=== PATIENT | female | born 1990 | race Caucasian/White ===

== ENCOUNTER → 2020-01-02 10:46 | Outpatient (REF) | payer OTHER, SELFPAY | LOC: ANHLAB 10:46 | PROVIDERS: PCP Family Medicine; Visit Provider Nurse Practitioner Family | DX: L72.9 Follicular cyst of the skin and subcutaneous tissue, unspecified (principal) | CPT/HCPCS: 88304 ==

== ENCOUNTER 2020-06-10 14:25 | Outpatient (CLI) | payer OTHER, SELFPAY ==
--- NOTE | ~2020-06-10 | MMUS_ITS ---
EXAMINATION: MM diagnostic otilia BI w stephany, US breast BI complete HISTORY: Nipple discharge. TECHNIQUE: Additional 3-D tomosynthesis images of the breasts were performed and synthetic 2-D images were generated. CAD analysis was submitted and interpreted. High resolution bilateral breast ultraso und was performed. COMPARISON: None BREAST PARENCHYMAL COMPOSITION: The breasts are extremely dense, which lowers the sensitivity of mamm ography. FINDINGS: MAMMOGRAPHIC FINDINGS: There are no suspicious masses, calcifications or architectural distortion to suggest malignancy. ULTRASOUND: Right breast ultrasound: At 6:00, 2 cm from the nipple, there is an oval circumscribed hypoechoic mass measuring 5 mm maximum dimension. There are spell orientation, circumscribed margins, no internal vascularity or posterior f eatures. Left breast ultrasound: At 8:00, 3 cm from the nipple, there is oval hypoechoic mass with circumscrib ed margins, parallel orientation, no internal vascularity or posterior features measuring 10 x 4 x 6 mm. There is a echogenic hilum. IMPRESSION: 1. Probable benign bilateral breast masses. 2. Recommend 6 month follow-up bilateral breast ultrasound BI-RADS category 3, probably benign findings. Reviewed, dictated and finalized at location A. IMPRESSION: 1. Probable benign bilateral breast masses. 2. Recommend 6 month follow-up bilateral breast ultrasound BI-RADS category 3, probably benign findings.
== END 2020-06-10 14:26 ==
PROVIDERS: Visit Provider Nurse Practitioner Adult Health
DX: N64.52 Nipple discharge (principal); R92.8 Other abnormal and inconclusive findings on diagnostic imaging of breast
CPT/HCPCS: 76641; 77062; 77066; G0279

== ENCOUNTER → 2020-12-24 06:51 | Outpatient (CLI) | payer OTHER, SELFPAY ==
[2020-12-24 20:12] LABS: SARS-CoV-2 RNA PCR Negative
== END ==
PROVIDERS: Visit Provider Nurse Practitioner Adult Health
DX: R68.89 Other general symptoms and signs (principal); Z20.822 Contact with and (suspected) exposure to COVID-19
CPT/HCPCS: C9803; U0003; U0005

== ENCOUNTER → 2022-05-03 08:22 | Outpatient (CLI) | payer OTHER, SELFPAY ==
--- NOTE | ~2022-05-03 | CT_ITS ---
EXAMINATION: CT abdomen pelvis wo con DATE: 05/03/2022 08:47 INDICATION: Hematuria TECHNIQUE: Computed tomography (CT) of the abdomen and pelvis was performed without intravenous contr ast. Automated exposure control and iterative reconstruction technique were employed. Exam dose: 236 .22 mGy-cm total exam DLP. COMPARISON: None. FINDINGS: The lung bases are clear. Normal heart size. No pericardial or pleural effusion. Status post cholecystectomy. The liver, bile ducts, pancreas and pancreatic duct are unremarkable. Splenic size is within normal r yamilex. Normal morphology of the adrenal glands. No renal mass lesion or urinary tract calculus or hydroureteronephrosis. The uterus, adnexal areas an d urinary bladder are unremarkable. Normal caliber of the abdominal aorta. No intraperitoneal or retroperitoneal or pelvic mass lesion or adenopathy or ascites is noted. Normal appendix. No bowel obstruction or intraperitoneal free air. Very small fat-containing umbilical hernia. Included skeletal structures are unremarkable. IMPRESSION: No urinary tract calculus or hydroureteronephrosis. No apparent renal or urinary bladder space-occupying mass lesion is evident on this limited noncontrast examination Normal appendix Status post cholecystectomy Reviewed, dictated and finalized at Location [facility]. Reviewed, dictated and finalized at location B. IMPRESSION: No urinary tract calculus or hydroureteronephrosis. No apparent re nal or urinary bladder space-occupying mass lesion is evident on this limited n oncontrast examination Normal appendix Status post cholecystectomy
== END ==
PROVIDERS: PCP Nurse Practitioner Adult Health; Visit Provider Nurse Practitioner Adult Health
DX: R31.9 Hematuria, unspecified (principal)
CPT/HCPCS: 74176

== ENCOUNTER 2024-10-05 08:07 | Emergency (ER) | payer BC, SELFPAY ==
[2024-10-05 08:20] VITALS: BP 112/79; PULSE 91; RESP 20; TEMP 36.4; O2SAT 100
--- NOTE | 2024-10-05 08:20 | ED_ITS ---
HPI - URI/Sore Throat General Chief Complaint: Upper Respiratory Infection Stated Complaint: aches/fever/chills/chest tight/cough Time Seen by Provider: 10/05/24 08:22 Source: patient, RN notes reviewed and old records reviewed Mode of arrival: ambulatory Limitations: no limitations History of Present Illness HPI Narrative: 34 year old female who presents to [facility] care with complaints of cough, fevers up to 101.5F which was this morning, body aches, chills and some chest tightness with cough since Monday. Patient reports that daughter is just getting over viral pneumonia. Patient reports that she has been taking Tylenol and Ibuprofen for her fevers and also her generalized aching. Patient reports that cough really started to get bad yesterday. MD elicited complaint: cough and sore throat Pertinent past history: pneumonia Onset (ago): day(s) (4) Consistency: progressively worsening Pain scale (0-10): 3 Able to tolerate fluids by mouth: Yes Treatments prior to arrival: acetaminophen and ibuprofen Related Data Home Medications Medication Instructions Recorded Confirmed Zyrtec .Route 09/25/24 09/25/24 fluoxetine 10 mg capsule 10 mg PO DAILY 09/25/24 09/25/24 methylphenidate HCl 100 mg 100 mg PO QHS 09/25/24 09/25/24 capsule,delayed release,ext release sprinkle (Jornay PM) Allergies Allergy/AdvReac Type Severity Reaction Status Date / Time codeine Allergy Mild Nausea and Verified 09/25/24 11:16 Vomiting oxycodone Allergy Mild Nausea and Verified 09/25/24 11:16 Vomiting Sulfa (Sulfonamide Allergy Mild Nausea and Verified 09/25/24 11:16 Antibiotics) Vomiting Review of Systems Review of Systems: CONSTITUTIONAL: Reports malaise, chills, sweats, or fever. EYES: Denies visual changes, redness, or discharge. ENT: Reports rhinorrhea, congestion,no sinus pain,no otalgia and no sore throat. CARDIOVASCULAR: Denies chest pain, palpitations, or edema. RESPIRATORY: Reports cough.? Denies any acute dyspnea GASTROINTESTINAL: Denies abdominal pain, nausea, vomiting, diarrhea SKIN: Denies rash or itching. MUSCULOSKELETAL: Reports myalgia. NEUROLOGIC: Denies headache. All systems reviewed & are unremarkable except as noted in HPI and below PMFSH Past Medical History Medical History ADHD Anxiety Depression Interstitial cystitis Pneumonia 2012 Surgical History Surgical History History of 2 sections 2011, 2014 History of cholecystectomy History of tonsillectomy Family History Family History Mother SVT (supraventricular tachycardia) Father Heart disease Sibling Depression Anxiety Hypertension Grandparent Cancer Grandparent Diabetes mellitus Heart disease Grandparent Hypertension Diabetes mellitus Heart disease Cancer Social History Social History Smoking status: Never smoker Alcohol intake: current Alcohol use details: 1-4 a week Substance use: never Substance use type: does not use Additional occupation/education comments: Self Employed Gender identity (if verbalized by the patient): Female Agree to blood products: Yes Comments At time of signature, agree with nursing past medical, surgical, social and family history. There is no relevant family history pertinent to the presenting complaint Exam Narrative: GENERAL: Ill-appearing, well-nourished, and in no acute distress. HEAD: Normocephalic EYES: PERRLA, conjunctivae clear ENT: Nares clear, turbinates edematous and erythematous, clear discharge. Mucous membranes moist. TM pearly gutiérrez with dull light reflex bilaterally; no tragal tenderness. Oropharynx erythematous without lesions. Tonsils not present and throat without exudate, no drooling, no hoarseness, no trismus, uvula midline. NECK: Supple. No lymphadenopathy CHEST: Clear to auscultation, breath sounds equal. No wheezing, rhonchi, rales, or stridor. No respiratory distress, speaks in full sentences.cough at times productive, SAO2 100% on room air HEART: Regular rate and rhythm. No murmur heard. SKIN: Warm, dry, no rash. NEURO: Alert and oriented x3. PSYCH: Normal mood and affect Course Course Emergency Course: Patient is aware of diagnosis, understands and agrees to treatment plan.? Anticipatory guidance given.? Patient agrees to follow-up as directed and is aware of reasons to seek care at the emergency department. Portions of this record may have been created with voice recognition software Level of Care: Express Care Visit Vital Signs Vital signs: Reviewed MDM - URI/Sore Throat MDM Narrative Medical decision making narrative: Differential diagnosis considered: Ro virus, strep pharyngitis, allergic rhinitis, upper respiratory tract infection, sinusitis, rhinosinusitis, nasopharyngitis. viral pharyngitis, otitis media, otitis externa, pneumonia, bronchitis, viral cough syndrome, viral syndrome, and influenza.? Exam findings show no acute concerns or changes; patient is non-toxic appearing and is in no distress.? Patient is appropriate for outpatient treatment and follow-up. Differential Diagnosis Differential diagnosis: Likely upper respiratory infection, viral infection and other (pneumonia, acute cough) Medical Records Attestation: I reviewed the patient's medical records. Lab Data Attestation: I reviewed the patient's lab results. Lab results narrative: influenza A negative, Influenza B negative, Covid antigen negative Critical Care Time Critical Care Time Critical Care Time: No Discharge Plan Discharge Clinical Impression: Upper respiratory infection with cough and congestion Patient Disposition: Home, Self-Care Condition: Stable Instructions: Antibiotic Form, Upper Respiratory Infection (ED), Acute Cough (ED) Additional Instructions: Increase fluids especially juices and water Dbdo-lck-skawifb cough and cold medicine of your choice for your symptoms Zyrtec Claritin or Siri daily Tylenol or ibuprofen for any fever pain Steroids as directed--take with food heat to the face 20-30 minutes 4-6 times a day for pain Salt water gargles, throat lozenges or throat sprays as desired Antibiotic as directed--finished the medication If your symptoms persist, change or worsen significantly before you can contact your personal physician then please, without delay, go to the emergency department for further evaluation. Follow-up with PCP in 7-10 days or sooner if needed Prescriptions: New azithromycin 250 mg tablet See Rx Instructions .ROUTE .COMPLEX Qty: 6 0RF Rx Instructions: For 250 mg dose pack: take 500 mg today (day 1), then 250 mg for 4 days (days 2-5) methylprednisolone [Medrol (José)] 4 mg tablets,dose pack See Rx Instructions .ROUTE .COMPLEX Qty: 21 0RF Rx Instructions: orally per package directions No Action Zyrtec .Route Rx Instructions: 10mg as directed. Jornay PM 100 mg capsule,del rel,ext rel sprink 100 mg PO QHS fluoxetine 10 mg capsule 10 mg PO DAILY Follow-up/Referrals: Tracy Gibson APRN [Primary Care Provider] - Time of Disposition: 08:51 Quality Jeffy Coma Scale Eyes: Open Verbal: Oriented and Alert Motor: Follows Commands Jeffy Coma Total Score: 15
[2024-10-05 08:49] LABS: EDCOVIDSCREEN Negative (Negative); EDINFLUASCREEN Negative (Negative); EDINFLUBSCREEN Negative (Negative)
== END 2024-10-05 08:55 | disposition home or self-care (01) ==
PROVIDERS: Emergency Provider Registered Nurse; PCP Nurse Practitioner Adult Health
DX: J06.9 Acute upper respiratory infection, unspecified (principal); R05.9 Cough, unspecified; Z20.822 Contact with and (suspected) exposure to COVID-19; F41.9 Anxiety disorder, unspecified; F32.A Depression, unspecified
CPT/HCPCS: 87426; 87804; 99213; G0463

== ENCOUNTER 2024-12-30 08:48 | Outpatient (CLI) | payer OTHER, SELFPAY ==
--- OUTSIDE RECORDS SUMMARY | 2024-12-30 09:24 | XMS_ITS | Referral Summary ---
Author Organization [facility] Address [address] [place] [id number] Care Team Providers Care Production Bow Maker Name Role Phone Dameon Pitt MD Primary Care Provider [phone] Allergies Active Allergy Reactions Criticality Noted Date Comments Codeine Vomiting High 04/22/2022 Nifedipine Hives Medium 04/22/2022 Sulfa (Sulfonamide Antibiotics) Hives High 04/06 Medications desvenlafaxine ER (PRISTIQ) 25 mg tablet extended release 24 hr 24 hr tablet desvenlafaxine succinate ER 25 mg tablet,extended release 24 hr TAKE 1 TABLET BY MOUTH EVERY DAY FOR 30 DAYS Active ALPRAZolam (XANAX) 0.25 mg tablet PRN Active diazePAM (VALIUM) 10 mg tablet diazepam 10 mg tablet INSERT TABLET VAGINALLY EVERY DAY AT BEDTIME FOR 10 DAYS Active fluoride, sodium, 1.1 % gel PreviDent 5000 Booster Plus 1.1 % dental paste BRUSH TEETH DIRECTED BY DOCTOR. Active kingsley-anthony de leónqxhd-auibp-a yo 118-10-40.8-36 mg capsule Uro-MP 118 mg-10 mg-40.8 mg-36 mg capsule TAKE 1 CAPSULE BY MOUTH FOUR TIMES A DAY NEEDED Active FLUoxetine 10 mg capsule Take 1 capsule by mouth once daily 90 capsule 3 Active Active Problems Problem Noted Date Diagnosed Date Gastroesophageal reflux disease 07/11/2023 Diastasis recti 09/21/2017 Thoracic back pain 09/21/2017 Mixed anxiety and depressive disorder 04/27/2017 Immunizations Immunization Administration Dates Next Due Hep B Vaccine 04/06/2022 Influenza, Quadrivalent, Spl it, Intramuscular 01/02/2017,09/08/2015 Influenza, Quadrivalent, Spl it, Preservative Free, Intramuscular 09/07/2021,08/07/2019,09/04/2018,09/21 Social History Tobacco Use Types Packs/Day Years Used Date Smoking Tobacco: Former PHQ-2 Answer Date Recorded PHQ-2 Total Score (If total score is 3 or more points, staff should administer the PHQ-9) 0 08/17/2022 Personal Safety Answer Date Recorded Getting School Help Needed Not on file 11/09 Comments Unknown Sex and Gender Information Value Date Recorded Sex Assigned at Not on file 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 Gender Identity Not on file Sexual Orientation Not on file Last Filed Vital Signs Vital Sign Reading Time Taken Comments Blood Pressure 112/74 07/11/2023 8:22 AM CDT Pulse 66 07/11/2023 8:22 AM CDT Temperature 36.4 C (97.6 F) 07/11/2023 8:22 AM CDT Respiratory Rate 16 07/11/2023 8:22 AM CDT Oxygen Saturation 96% 07/11/2023 8:22 AM CDT Inhaled Oxygen Concentration - - Weight 63.5 kg (140 lb) 07/11/2023 8:22 AM CDT Height 165.1 cm (5' 5 ) 07/11/2023 8:22 AM CDT Body Mass Index 23.3 07/11/2023 8:22 AM CDT Plan of Treatment Not on file Insurance [facility] [employer] [place] [employer] [place] Care Teams Production Bow Maker Relationship Specialty Start Date End Date Dameon Pitt MD [address] [facility] [place] [address] PCP - General Family Medicine 07/11/23
--- OUTSIDE RECORDS SUMMARY | 2024-12-30 09:24 | XMS_ITS | Clinical Summary ---
Author Organization [facility] Address [address] [place] [address] Care Team Providers Care Clearing House Clerk Name Role Phone Brenna Valles MD Primary Care Provider [phone] Source Comments [facility],non-owned Affiliates and Associated Physician Practices is amultiple site organization consisting of ambulatory clinics and hospital sitesin [place], [place], [place] and [place]. This disclosure is being madepursuant to the Care Everywhere program and may not contain all information available regarding this patient. Last updated 18.[facility] Social History Tobacco Use Types Packs/Day Years Used Date Smoking Tobacco: Never Assessed Sex and Gender Information Value Date Recorded Sex Assigned at Not on file Gender Identity Not on file Sexual Orientation Not on file Plan of Treatment Health Maintenance Due Date Last Done Comments PAP SMEAR 1990 HIV SCREENING 02/25/2003 HEPATITIS C SCREENING 02/21/2006 DTAP/TDAP/TD VACCINES (1 - Tdap) 02/25/2007 HEPATITIS B VACCINE (1 of 3 - 19+ 3-dose series) 02/25/2007 COVID-19 VACCINE ( - 2023-2 5 season) 2024 INFLUENZA VACCINE (#1) 2024 DEPRESSION SCREENING 11/06/2024 ZOSTER VACCINE (1 of 2) 02/25/2038 HIB VACCINE Aged Out No longer eligi ble based on patient's age to complete this topic HPV VACCINE Aged Out No longer eligi ble based on patient's age to complete this topic MENINGOCOCCAL (Group B) VACCINE Aged Out No longer eligible based on patient's age to complete this topic MENINGOCOCCAL VACCINE Aged Out No charla soheila eligible based on patient's age to complete this topic PNEUMOCOCCAL VACCINE Aged Out No long er eligible based on patient's age to complete this topic Care Teams Clearing House Clerk Relationship Specialty Start Date End Date Brenna Valles MD [address] [address] PCP - General Family Medicine 04/20/15
--- OUTSIDE RECORDS SUMMARY | 2024-12-30 09:24 | XMS_ITS | Clinical Summary ---
Author Organization [facility] Address [address] [place] [id number] Care Team Providers Care Industrial Safety And Health Technician Name Role Phone Dameon Pitt MD Primary Care Provider [phone] Allergies Active Allergy Reactions Criticality Noted Date [...] TEETH DIRECTED BY DOCTOR. Active kingsley-anthony de leónddld-nlulw-y yo 118-10-40.8-36 mg capsule Uro-MP 118 mg-10 [...] Quadrivalent, Spl it, Preservative Free, Intramuscular 09/07/2021,08/07/2019,09/04/2018,09/21 Surgical History Surgery Date Site/Laterality Comments TONSILLECTOMY SECTION CHOLECYSTECTOMY Medical History Medical History Date Comments Depression Interstitial cystitis Pelvic floor dysfunction ADHD (attention deficit hyperactivity disorder) Anxiety Family History Medical History Relation Name Comments Heart disease Father Heart disease Mother Relation Name Status Comments Father Mother Alive Social History Tobacco Use Types Packs/Day Years [...] on file 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 Gender Identity Not on file Sexual Orientation Not on file Obstetrics History Last Filed Vital Signs Vital Sign Reading [...] 07/11/2023 8:22 AM CDT Plan of Treatment Health Maintenance Due Date Last Done Comments Cervical Cancer Screening 1990 Hepatitis C Screening 1990 DTaP/Tdap/Td Vaccine (1 - Tdap) 02/25/1999 Varicella Vaccines (1 of 2 - 13+ 2-dose series) 02/25/2001 Depression Screening 08/17/2023 08/17/2022 Regular Well Visit/Exam 18-64 08/17/2023 08/17/2022 Covid-19 Vaccine ( season) 2024 03/02/2021, 02/09/2021 Influenza Vaccine (#1) 2024 , 08/07/2019, 09/04/2018, Additional history exists Hepatitis B Screening Completed 04/06/2022 HPV Vaccines Aged Out No longer eligi ble based on patient's age to complete this topic Pneumococcal vaccine <65 Aged Out No longer eligible based on patient's age to complete this topic Insurance [facility] Advanced Oncotherapy [facility] Care Teams Industrial Safety And Health Technician Relationship Specialty Start Date End Date Dameon Pitt MD [address] [place] [address] PCP - General Family Medicine 07/11/23
--- OUTSIDE RECORDS SUMMARY | 2024-12-30 09:25 | XMS_ITS | Referral Summary ---
Author Organization [facility] Address [address] [place] [address] Care Team Providers Care Marketing Representative Name Role Phone Brenna Valles MD Primary Care Provider [phone] Source Comments [facility],non-[facility] Affiliates and Associated Physician Practices is amultiple site organization consisting of ambulatory clinics and hospital sitesin [place], [place], [place] and [place]. This disclosure is being madepursuant to the Care Everywhere program and may not contain all information available regarding this patient. Last updated 18.[facility] Social History Tobacco Use Types Packs/Day Years Used Date Smoking Tobacco: Never Assessed Sex and Gender Information Value Date Recorded Sex Assigned at Not on file Gender Identity Not on file Sexual Orientation Not on file Plan of Treatment Not on file Care Teams Marketing Representative Relationship Specialty Start Date End Date Brenna Valles MD [address] [place] [address] [address] [place] [id number] PCP - General Family Medicine 04/20/15
--- OUTSIDE RECORDS SUMMARY | 2024-12-30 09:25 | XMS_ITS ---
Author Organization [facility] [employer] [facility] Address [address] [place] [address] Care Team Providers Care Health Care Assistant Name Role Phone Tracy Gibson APRN Primary Care Provider Jordan Jovel Unavailable [phone] REASON FOR VISIT New Refill Request Medications Medication SIG (Take, Route, Fr equency, Duration) Notes Start Date End Date Status Jornay PM 100 MG 1 capsule in the natalia julianna Orally Once a day for 30 days 12/26/2024 01/25/2025 Active Social History Sex Assigned At : Social History Observation Description Sex Assigned At Female Encounters Encounter Location Date Provider Diagnosis [facility] [facility] [address] [place] [address] 12/26/2024 Jordan Alexander Attention-deficit hyperactivity disorder, combined type F90.2 Assessments Encounter Date Diagnosis (ICD Code) Assessment Notes Treatment Notes Treatment Clinical Notes Section Notes 12/26/2024 Attention-deficit hyperactivity disorder, combined type (ICD-10 - F90.2) Plan Of Treatment Medication Medication Name Sig Start Date Stop Date Notes Jornay PM 100 MG 1 capsule in the natalia julianna Orally Once a day for 30 days 12/26/2024 01/25/2025 Next Appt Details Provider Name:Jordan green, 02/18/2025 01:00:00 PM, [address], [place], [address], Progress Notes * NEFTALY ANGULO KDOB:1990 (34 yo F)Acc No.[id number]:12/26/2024 Patient: NEFTALY VARGAS :1990 A ge:34 Y S ex:Female Address:[address] [place] [address] , [place], [address] * Refills Refill Jornay PM Capsule Extended Release 24 Hour, 100 MG, Orally, 30, 1 capsule in the evening, Once a day, 30 days, Refills=0 * true * Date: Generated for Neisha montgomery/Cash/nAaitting on: 0 12/30/2024 09:24 AM PLASTER HELPER
--- OUTSIDE RECORDS SUMMARY | 2024-12-30 09:25 | XMS_ITS | Patient Health Summary ---
Author Organization [facility] Address [address] [place] [address] Care Team Providers Care Aviation Safety Technician Name Role Phone Brenna Valles MD Primary Care Provider [phone] Note from [facility],non-owned Affiliates and Associated Physician Practices is amultiple site organization consisting of ambulatory clinics and hospital sitesin [place], [place], [place] and [place]. This disclosure is being madepursuant to the Care Everywhere program and may not contain all information available regarding this patient. Last updated 18.[facility] [employer] Social History Tobacco Use Types Packs/Day Years Used Date Smoking Tobacco: Never Assessed Sex and Gender Information Value Date Recorded Sex Assigned at Not on file Gender Identity Not on file Sexual Orientation Not on file Procedures * ECHO CONSULT - (Performed 04/21/2015) Performed for Other known or suspected abnormality, not elsewhere classified, affecting management of mother, antepartum condition or complication (HCC) Results * ECHO CONSULT - (04/21/2015 9:09 AM CDT) 04/21/2015 9:09 AM CDT Narrative [facility] - 04/21/2015 10:00 AM CDT [facility] , Echocardiogram 2D, Doppler, and Color Doppler Name: ROSEANNE SEAY MR #: [id number] Study date: 04/21/2015 Age: 25 years : 1990 Gender: Female Ht: / Wt: / BSA: HR: BP: / age: 28 weeks RADHA: 07/11/2015 Maternal age: 26 years REFERRING PHYSICIAN: KYLE SCHWARTZ CREATIVE SERVICES INTERN: Susanne Torres MD PEDIATRIC ECHO DETASSELER: Joni Henry RDCS History/ Indications: Rule out CHD. Procedure: The procedure was performed in the echo lab. Echocardiogram. type: single fetus. The fetus is in breech presentation. rhythm: The rhythm was normal. There was 1:1 AV conduction. dopplers: Flow in the ductus venosus was normal. The umbilical vein flow pattern was normal. The umbilical artery flow pattern was normal. Anatomic relationships: The fetus is in breech presentation. Left sided cardiac apex (levocardia). There was normal visceral-cardiac situs, and normal segmental cardiac anatomical relationship. Systemic veins: There was normal systemic venous return. Pulmonary veins: Doppler: Color flow pattern showed normal draining to the left atrium in the visualized pulmonary vein(s). Right atrium: Size was normal. Left atrium: Size was normal. Atrial septum: Patent foramen ovale is seen with the foramen flap bowing from right to left and color flow is right to left. Tricuspid valve: The valve structure was normal. Doppler: The inflow pattern and transtricuspid velocity were within the normal range. There was no regurgitation. Mitral valve: Valve structure was normal. Doppler: The inflow pattern and transmitral velocity were within the normal range. There was no regurgitation. Right ventricle: The cavity size was normal. Wall thickness was normal. Systolic function was normal. Left ventricle: The cavity size was normal. Wall thickness was normal. Systolic function was normal. Ventricular septum: The septum was intact. Pulmonic valve: Leaflets exhibited normal mobility. Doppler: The transpulmonic velocity was within the normal range. There was no regurgitation. Aortic valve: Leaflets exhibited normal mobility. Doppler: Transaortic velocity was within the normal range. There was no regurgitation. Pulmonary artery: The main pulmonary artery was normal, with normal-sized, confluent branch pulmonary arteries. Aorta: aortic arch visualized and was without obstruction by 2D, color flow and Doppler. Extracardiac shunting: Ductus arteriosus: The antegrade flow velocity and pattern in the ductal arch was normal. A normal ductus arteriosus was appreciated. Pericardium: There was no pericardial effusion. No evidence of ascites or pleural effusion. Summary: - Diagnoses: The echocardiogram was within normal limits; however small atrial and ventricular septal defects and persistent ductus arteriosus or bicuspid aortic valve cannot be excluded as findings. Prepared and signed by Susanne Torres MD Signed 04/21/2015 09:59:40 System measurement tables 2D mode Aorta AoR Diam (2D): 6 mm AoR Diam; Mean (2D): 6 mm Unspecified Scan Mode Aortic Valve HR; Recent value: 138 {H.B.}/min Peak Grad; Mean; Antegrade Flow: 2 mm[Hg] Vmax; Antegrade Flow: 744 mm/s Vmax; Mean; Antegrade Flow: 744 mm/s Mitral Valve MV E/A: 0.6 MV Peak A Castro: 572 mm/s MV Peak A Castro; Mean: 572 mm/s MV Peak E Castro; Antegrade Flow: 333 mm/s MV Peak E Castro; Mean; Antegrade Flow: 333 mm/s Pulmonic Valve Peak Grad; Mean; Antegrade Flow: 2 mm[Hg] Vmax; Antegrade Flow: 649 mm/s Vmax; Mean; Antegrade Flow: 649 mm/s Tricuspid Valve TV E/A: 0.8 TV Peak A Castro: 720 mm/s TV Peak A Castro; Mean: 720 mm/s TV Peak E Castro; Antegrade Flow: 544 mm/s TV Peak E Castro; Mean; Antegrade Flow: 544 mm/s Procedure Note Unknown, Provider - 04/21/2015 [facility] , Echocardiogram 2D, Doppler, and Color Doppler Name: ROSEANNE SEAY MR #: [id number] Study date: 04/21/2015 Age: 25 years : 1990 Gender: Female Ht: / Wt: / BSA: HR: BP: / age: 28 weeks RADHA: 07/11/2015 Maternal age: 26 years REFERRING PHYSICIAN: KYLE SCHWARTZ CREATIVE SERVICES INTERN: Susanne Torres MD PEDIATRIC ECHO DETASSELER: Joni Henry RDCS History/ Indications: Rule out CHD. Procedure: The procedure was performed in the echo lab. Echocardiogram. type: single fetus. The fetus is in breech presentation. rhythm: The rhythm was normal. There was 1:1 AV conduction. dopplers: Flow in the ductus venosus was normal. The umbilical vein flow pattern was normal. The umbilical artery flow pattern was normal. Anatomic relationships: The fetus is in breech presentation. Left sided cardiac apex (levocardia). There was normal visceral-cardiac situs, and normal segmental cardiac anatomical relationship. Systemic veins: There was normal systemic venous return. Pulmonary veins: Doppler: Color flow pattern showed normal draining to the left atrium in the visualized pulmonary vein(s). Right atrium: Size was normal. Left atrium: Size was normal. Atrial septum: Patent foramen ovale is seen with the foramen flap bowing from right to left and color flow is right to left. Tricuspid valve: The valve structure was normal. Doppler: The inflow pattern and transtricuspid velocity were within the normal range. There was no regurgitation. Mitral valve: Valve structure was normal. Doppler: The inflow pattern and transmitral velocity were within the normal range. There was no regurgitation. Right ventricle: The cavity size was normal. Wall thickness was normal. Systolic function was normal. Left ventricle: The cavity size was normal. Wall thickness was normal. Systolic function was normal. Ventricular septum: The septum was intact. Pulmonic valve: Leaflets exhibited normal mobility. Doppler: The transpulmonic velocity was within the normal range. There was no regurgitation. Aortic valve: Leaflets exhibited normal mobility. Doppler: Transaortic velocity was within the normal range. There was no regurgitation. Pulmonary artery: The main pulmonary artery was normal, with normal-sized, confluent branch pulmonary arteries. Aorta: aortic arch visualized and was without obstruction by 2D, color flow and Doppler. Extracardiac shunting: Ductus arteriosus: The antegrade flow velocity and pattern in the ductal arch was normal. A normal ductus arteriosus was appreciated. Pericardium: There was no pericardial effusion. No evidence of ascites or pleural effusion. Summary: - Diagnoses: The echocardiogram was within normal limits; however small atrial and ventricular septal defects and persistent ductus arteriosus or bicuspid aortic valve cannot be excluded as findings. Prepared and signed by Susanne Torres MD Signed 04/21/2015 09:59:40 System measurement tables 2D mode Aorta AoR Diam (2D): 6 mm AoR Diam; Mean (2D): 6 mm Unspecified Scan Mode Aortic Valve HR; Recent value: 138 {H.B.}/min Peak Grad; Mean; Antegrade Flow: 2 mm[Hg] Vmax; Antegrade Flow: 744 mm/s Vmax; Mean; Antegrade Flow: 744 mm/s Mitral Valve MV E/A: 0.6 MV Peak A Castro: 572 mm/s MV Peak A Castro; Mean: 572 mm/s MV Peak E Castro; Antegrade Flow: 333 mm/s MV Peak E Castro; Mean; Antegrade Flow: 333 mm/s Pulmonic Valve Peak Grad; Mean; Antegrade Flow: 2 mm[Hg] Vmax; Antegrade Flow: 649 mm/s Vmax; Mean; Antegrade Flow: 649 mm/s Tricuspid Valve TV E/A: 0.8 TV Peak A Castro: 720 mm/s TV Peak A Castro; Mean: 720 mm/s TV Peak E Castro; Antegrade Flow: 544 mm/s TV Peak E Castro; Mean; Antegrade Flow: 544 mm/s Kyle Schwartz MD ECHO ORDERABLES [facility] [address] [place] [address] Care Teams Aviation Safety Technician Relationship Specialty Start Date End Date Brenna Valles MD [address] [place] [phone] PCP - General Family Medicine 04/20/15
[2024-12-30 19:26] LABS: Hematocrit 47.4 % (37.0-47.0); Hemoglobin 15.6 g/dL (12.0-15.0); Mean Corpuscular HGB Conc 32.9 g/dl (32-36); Mean Corpuscular Volume 94.2 fl (80-100); Platelet Count Result 187 k/mm3 (150-375); Red Blood Count 5.03 M/mm3 (4.2-5.4); Red Cell Distribution Width 12.9 % (11.5-14.5); White Blood Count 4.5 K/mm3 (4.5-10.0)
[2024-12-30 20:01] LABS: Alanine Aminotransferase 27 U/L (6-35); Albumin Level 4.7 g/dL (3.5-5.1); Alkaline Phosphatase 45 U/L (38-126); Anion Gap 10 mmol/L (4-12); Aspartate Amino Transferase 42 U/L (14-36); Bilirubin,Total 1.7 mg/dL (0.2-1.3); Blood Urea Nitrogen 15 mg/dL (7-17); Calcium 9.3 mg/dL (8.4-10.2); Carbon Dioxide 26 mmol/L (22-30); Chloride 100 mmol/L (98-107); Cholesterol 213 mg/dL (0-200); Estimated Glomerular Filt Rate > 60; Glucose 83 mg/dL (65-110); HDL Direct 73 mg/dL; Sodium 136 mmol/L (137-145); Triglycerides 69 mg/dL (<150)
[2024-12-30 20:13] LABS: LDL Cholesterol Direct 102 mg/dL
[2024-12-30 22:06] LABS: Vitamin D 25 Hydroxy 63.7 ng/mL
== END 2024-12-30 08:49 | disposition home or self-care (01) ==
LOC: ANHBWCLAB 08:52
PROVIDERS: PCP Nurse Practitioner Adult Health; Visit Provider Nurse Practitioner Adult Health
DX: Z13.9 Encounter for screening, unspecified (principal); E55.9 Vitamin D deficiency, unspecified
CPT/HCPCS: 36415; 80053; 80061; 82306; 82607; 84443; 85027

== ENCOUNTER 2025-01-14 08:38 | Outpatient (CLI) | payer OTHER, SELFPAY ==
--- OUTSIDE RECORDS SUMMARY | 2025-01-14 09:00 | XMS_ITS | Patient Health Summary ---
Author Organization [facility] Address [address] [place] [address] Care Team Providers Care Optical Design Engineer Name Role Phone Brenna Valles MD Primary Care Provider [phone] Note from [facility],non-owned Affiliates and Associated Physician Practices is amultiple site organization consisting of ambulatory clinics and hospital sitesin [place] and [place]. This disclosure is being madepursuant to the Care Everywhere program and may not contain all information available regarding this patient. Last updated 18.[facility] [employer] Social History Tobacco Use Types Packs/Day Years [...] AM CDT) 04/21/2015 9:09 AM CDT Narrative [facility] - 04/21/2015 10:00 AM CDT [facility] , Echocardiogram 2D, Doppler, and Color Doppler Name: ROSEANNE SEAY MR #: [id number] Study date: 04/21/2015 Age: 25 years : 1990 Gender: Female Ht: / Wt: / BSA: HR: BP: / age: 28 weeks RADHA: 07/11/2015 Maternal age: 24 years REFERRING PHYSICIAN: KYLE SCHWARTZ ARBORICULTURIST: Susanne Torres MD PEDIATRIC ECHO MAGNETIC HEALER: Joni Henry RDCS History/ Indications: Rule out [...] Antegrade Flow: 333 mm/s MV Peak E Castor; Mean; Antegrade Flow: 333 mm/s Pulmonic Valve [...] mm/s Procedure Note Unknown, Provider - 04/21/2015 [facility] , Echocardiogram 2D, Doppler, and Color Doppler Name: ROSEANNE SEAY MR #: [id number] Study date: 04/21/2015 Age: 25 years : 1990 Gender: Female Ht: / Wt: / BSA: HR: BP: / age: 28 weeks RADHA: 07/11/2015 Maternal age: 24 years REFERRING PHYSICIAN: KYLE SCHWARTZ ARBORICULTURIST: Susanne Torres MD PEDIATRIC ECHO MAGNETIC HEALER: Joni Henry RDCS History/ Indications: Rule out [...] 544 mm/s Kyle Schwartz MD ECHO ORDERABLES [facility] [address] [place] [address] Care Teams Optical Design Engineer Relationship Specialty Start Date End Date Brenna Valles MD [address] [place] [phone] PCP - General Family Medicine 04/20/15
--- OUTSIDE RECORDS SUMMARY | 2025-01-14 09:00 | XMS_ITS | Clinical Summary ---
Author Organization [facility] Address [address] [place] [address] Care Team Providers Care Mannequin Mold Maker Name Role Phone Brenna Valles MD Primary Care Provider [phone] Source Comments [facility],non-owned Affiliates and Associated Physician Practices is amultiple site organization consisting of ambulatory clinics and hospital sitesin [place], [place], [place] and [place]. This disclosure is being madepursuant to the Care Everywhere program and may not contain all information available regarding this patient. Last updated 18.[facility] Social History Tobacco Use Types Packs/Day Years [...] age to complete this topic Care Teams Mannequin Mold Maker Relationship Specialty Start Date End Date Brenna Valles MD [address] [phone] PCP - General Family Medicine 04/20/15
--- OUTSIDE RECORDS SUMMARY | 2025-01-14 09:00 | XMS_ITS | Referral Summary ---
Author Organization [facility] Address [address] [place] [phone] Care Team Providers Care Channel Manager Name Role Phone Dameon Pitt MD Primary Care Provider [phone] Allergies Active Allergy Reactions Criticality Noted Date [...] TEETH DIRECTED BY DOCTOR. 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 [place] [employer] [place] [employer] [place] Care Teams Channel Manager Relationship Specialty Start Date End Date Dameon Pitt MD [address] [place] [address] PCP - General Family Medicine 07/11/23
--- OUTSIDE RECORDS SUMMARY | 2025-01-14 09:00 | XMS_ITS | Clinical Summary ---
Author Organization [facility] Address [address] [place] [id number] Care Team Providers Care Renewals Specialist Name Role Phone Dameon Pitt MD Primary Care Provider [phone] Allergies Active Allergy Reactions Criticality Noted Date [...] TEETH DIRECTED BY DOCTOR. 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 Care Teams Renewals Specialist Relationship Specialty Start Date End Date Dameon Pitt MD [address] [place] [address] PCP - General Family Medicine 07/11/23
--- OUTSIDE RECORDS SUMMARY | 2025-01-14 09:00 | XMS_ITS | Referral Summary ---
Author Organization [facility] Address [address] [place] [address] Care Team Providers Care Rpg Developer Name Role Phone Brenna Valles MD Primary Care Provider [phone] Source Comments [facility],non-[facility] Affiliates and Associated Physician Practices is amultiple site organization consisting of ambulatory clinics and hospital sitesin [place], [place] and [place]. This disclosure is being madepursuant to the Care Everywhere program and may not contain all information available regarding this patient. Last updated 18.[facility] Social History Tobacco Use Types Packs/Day Years Used Date Smoking Tobacco: Never Assessed Sex and Gender Information Value Date Recorded Sex Assigned at Not on file Gender Identity Not on file Sexual Orientation Not on file Plan of Treatment Not on file Care Teams Rpg Developer Relationship Specialty Start Date End Date Brenna Valles MD [address] [place] [address] [address] [place] [phone] PCP - General Family Medicine 04/20/15
[2025-01-14 19:50] LABS: Add Urine Microscopic? YES; Appearance Urine Clear (Clear); Bacteria Urine Rare /hpf; Bilirubin Urine Negative (Negative); Blood Urine Negative (Negative); Color Urine Dark Yellow (Yellow); Glucose Urine UA Negative (Negative); Ketones Urine Negative (Negative); Leukocyte Esterase Ur 2+ LEU/UL (Negative); Need Manual Microscopic Reviewed; Nitrate Urine Positive (Negative); Non Pathogenic Casts 0-2; Protein Urine Negative (Negative); RBC Urine 0-2 /hpf (0-2); Specific Grav Ur 1.003 (1.001-1.035); Squamous Epithelial Cell Urine None Seen /hpf (Few); pH Urine 6.5 (5.0-9.0)
== END 2025-01-14 08:39 | disposition home or self-care (01) ==
LOC: ANHBWCLAB 08:39
PROVIDERS: PCP Nurse Practitioner Adult Health; Visit Provider Nurse Practitioner Adult Health
DX: R39.9 Unspecified symptoms and signs involving the genitourinary system (principal)
CPT/HCPCS: 81001; 87086

== ENCOUNTER 2025-02-11 08:46 | Outpatient (CLI) | payer OTHER, SELFPAY ==
--- OUTSIDE RECORDS SUMMARY | 2025-02-11 09:04 | XMS_ITS | Patient Health Record ---
Author Organization [facility] Address [address] [place] [address] Care Team Providers Care Senior Officer Name Role Phone Tracy Gibson APRN Primary Care Provider Jordan Jovel Unavailable [phone] Migration, Provider Unavailable Unavailable Allergies Allergen (clinical drug ingredient) Drug/Non Drug Allergy documented on EMR Reaction Allergy Type Onset Date Status Substance with sulfonamide structure and antibacterial mechanism of action (substance) SULFA (SULFONAMIDE ANTIBIOTICS) (uncoded) Unknown Allergy 02/14/2024 Active Procardia Unknown Drug Allergy 02/14/2024 Active codeine Codeine Unknown Drug Allergy 02/14/2024 Active Results Component Value Reference Range Notes DRUG SCREEN, 14 DRUGS (DETEC TIMED), URINE Reviewed date:02/14/2024 12:00:00 AM Interpretation: Performing Lab: Notes/Report: Amphetamine negative Barbiturates negative Benzodiazipine negative Buprenorphine negative Cocaine negative MDMA/Ectasy negative Methadone negative Methamphetamine negative Morphine negative note ALL NEG Oxycodone negative Phenocyclidine negative THC negative Reason For Referral No Information Medications Medication SIG (Take, Route, Fr equency, Duration) Notes Start Date End Date Status FLUoxetine HCl 10 MG 1 capsule Oral Once a day for 90 days 02/14/2024 Active ZyrTEC Allergy 10 MG Oral 02/14/2024 Active Valtrex 500 MG Oral 02/14/2024 Acti ve Immunizations Vaccine Route Administration Date Status Comme nts Influenza virus vaccine, quadrivalent (IIV4), split virus, 0.25 mL dosage Unknown 09/08/2015 Administered Influenza virus vaccine, quadrivalent (IIV4), split virus, 0.25 mL dosage Unknown 01/02/2017 Administered Influenza virus vaccine, quadrivalent (IIV4), split virus, 0.25 mL dosage Unknown 09/04/2018 Administered Novel Icodpjxrn-[id number], preservative free Unknown 09/21/2017 Administered Novel [id number]-[id number], preservative free Unknown 09/04/2018 Administered Novel Gzbaatkfp-G0X0-53, preservative free Unknown 08/07/2019 Administered Social History Tobacco Use: Social History Observation Description Date Details (start date - stop date) Former Smoker NA - NA Sex Assigned At : Social History Observation Description Sex Assigned At Female Tobacco Control (Standard) Question Answer Notes Tobacco use: Former smoker Problems Problem Type SNOMED Code ICD Code Onset Dates Problem Status W/U Status Risk Notes Problem Mild recurrent major depression (55464713) Major depressive disorder, recurrent, mild (F33.0) 02/14/20 Active confirmed Problem Generalized anxiety disorder (40895437) Generalized anxiety disorder (F41.1) 02/14/20 Active confirmed Problem Attention deficit hyperactivity disorder, combined type (07027223) Attention-deficit hyperactivity disorder, combined type (F90.2) 02/14/20 Active confirmed Vital Signs Heart Rate 70 /min 10/22/2024 Height-cm 165.10 cm 10/22/2024 Blood pressure diastolic 81 mm Hg 10/22/2024 Weight-kg 62.14 kg 10/22/2024 Height 65.00 in 10/22/2024 Blood pressure systolic 119 mm Hg 10/22/2024 Weight 137 lbs 10/22/2024 BMI 22.8 kg/m2 10/22/2024 Encounters Encounter Location Date Provider Diagnosis [facility] [address] [facility] [address] [place] [address] 02/14/2024 Jordan Alexander Attention-deficit hyperactivity disorder, combined type F90.2 ; Generalized anxiety disorder F41.1 and Major depressive disorder, recurrent, mild F33.0 [facility] [address] [facility] [address] [place] [address] 03/26/2024 Provider Migration Attention-deficit hyperactivity disorder, combined type F90.2 [facility] [address] [facility] [address] [place] [address] 03/27/2024 Provider Migration Attention-deficit hyperactivity disorder, combined type F90.2 [facility] [address] [place] [address] 04/24/2024 Jordan Alexander Attention-deficit hyperactivity disorder, combined type F90.2 ; Generalized anxiety disorder F41.1 and Major depressive disorder, recurrent, mild F33.0 [facility], [facility] [address] [place] [address] 06/18/2024 Jordan Alexander Attention-deficit hyperactivity disorder, combined type F90.2 ; Generalized anxiety disorder F41.1 and Major depressive disorder, recurrent, mild F33.0 [facility] [address] [place] [address] 10/22/2024 Jordan Alexander Attention-deficit hyperactivity disorder, combined type F90.2 ; Generalized anxiety disorder F41.1 and Major depressive disorder, recurrent, mild F33.0 [facility], [facility] [address] [place] [address] 03/20/2024 Provider Migration [facility], [facility] [address] [place] [address] 03/23/2024 Provider Migration [facility], [facility] [address] [place] [address] 03/24/2024 Provider Migration [facility], [facility] [address] [place] [address] 03/25/2024 Provider Migration [facility], [facility] [address] [place] [address] 03/26/2024 Provider Migration [facility], [facility] [address] [place] [address] 03/27/2024 Provider Migration [facility], [facility] [address] [place] [address] 06/05/2024 Jordan Alexander Attention-deficit hyperactivity disorder, combined type F90.2 and Generalized anxiety disorder F41.1 [facility], [facility] [address] [place] [address] 07/30/2024 Jordan Alexander Generalized anxiety disorder F41.1 and Attention-deficit hyperactivity disorder, combined type F90.2 [facility], [facility] [address] [place] [address] 09/16/2024 Jordan Alexander Attention-deficit hyperactivity disorder, combined type F90.2 [facility] [address] [place] [address] 12/26/2024 Jordan Alexander Attention-deficit hyperactivity disorder, combined type F90.2 [facility] [address] [place] [address] 01/21/2025 Jordan Alexander Assessments Encounter Date Diagnosis (ICD Code) Assessment Notes Treatment Notes Treatment Clinical Notes Section Notes 02/14/2024 Major depressive disorder, recurrent, mild (ICD-10 - F33.0) 02/14/2024 Generalized anxiety disorder (ICD-10 - F41.1) 02/14/2024 Attention-deficit hyperactivity disorder, combined type (ICD-10 - F90.2) 03/26/2024 Attention-deficit hyperactivity disorder, combined type (ICD-10 - F90.2) 03/27/2024 Attention-deficit hyperactivity disorder, combined type (ICD-10 - F90.2) 04/24/2024 Attention-deficit hyperactivity disorder, combined type (ICD-10 - F90.2) increase jornay to 80mg at bedtime x 2 weeks then 100mg at bedtime she has 40mg caps at home will take 2 for 14 days she is tolerating jornay, is taking 60mg daily, still has adhd symptoms increase jornay to 80mg at bedtime x 2 weeks then 100mg at bedtime 06/05/2024 Generalized anxiety disorder (ICD-10 - F41.1) 06/05/2024 Attention-deficit hyperactivity disorder, combined type (ICD-10 - F90.2) 06/18/2024 Attention-deficit hyperactivity disorder, combined type (ICD-10 - F90.2) cont jornay 100mg every evening she is tolerating jornay, is taking 60mg daily, still has adhd symptoms increase jornay to 80mg at bedtime x 2 weeks then 100mg at bedtime 1. ADHD, Combined Presentation - Patient reports positive response to Journay 100 mg every evening, with no sleep disturbances or crashes. The medication is lasting long enough throughout the day. No side effects reported as long as the patient eats within an hour of waking up. Plan: - Continue Journay 100 mg every evening. - Monitor patient's progress on Journay 100 mg. - Instruct the patient to send a message through the portal when a refill is needed. 2. Generalized Anxiety Disorder - Patient is currently on Fluoxetine 10 mg daily. No problems reported with this medication. The patient acknowledges some situational anxiety due to the time of year and children returning to school but believes it will improve once schedules are established. Plan: - Continue Fluoxetine 10 mg daily. - Monitor patient's anxiety levels and adjust treatment if necessary. - Instruct the patient to request a refill through the portal when needed. 3. Follow-up Plan: - Schedule a follow-up appointment in four months to assess the patient's progress and medication effectiveness. - Encourage the patient to reach out sooner if any concerns or issues arise. 07/30/2024 Generalized anxiety disorder (ICD-10 - F41.1) 09/16/2024 Attention-deficit hyperactivity disorder, combined type (ICD-10 - F90.2) 10/22/2024 Attention-deficit hyperactivity disorder, combined type (ICD-10 - F90.2) cont jornay 100mg every evening 1. Depression and Anxiety: - Patient reports no significant increase in depression or anxiety symptoms. - Continue current treatment with Fluoxetine 10 mg daily. Plan: - Refill Fluoxetine 10 mg daily for the patient. 2. ADHD: - Patient reports good response to Jornay PM 100 mg every evening, with coverage lasting until about 6-7 pm the following day. Plan: - Continue Jornay PM 100 mg every evening. - Refill Jornay PM 100 mg every evening for the patient. Follow-up: - Schedule a follow-up appointment in 4 months to reassess the patient's symptoms and medication effectiveness. 12/26/2024 Attention-deficit hyperactivity disorder, combined type (ICD-10 - F90.2) 10/22/2024 Generalized anxiety disorder (ICD-10 - F41.1) cont fluoxetine 10mg daily 1. Depression and Anxiety: - Patient reports no significant increase in depression or anxiety symptoms. - Continue current treatment with Fluoxetine 10 mg daily. Plan: - Refill Fluoxetine 10 mg daily for the patient. 2. ADHD: - Patient reports good response to Jornay PM 100 mg every evening, with coverage lasting until about 6-7 pm the following day. Plan: - Continue Jornay PM 100 mg every evening. - Refill Jornay PM 100 mg every evening for the patient. Follow-up: - Schedule a follow-up appointment in 4 months to reassess the patient's symptoms and medication effectiveness. 07/30/2024 Attention-deficit hyperactivity disorder, combined type (ICD-10 - F90.2) 04/24/2024 Generalized anxiety disorder (ICD-10 - F41.1) cont fluoxetine 10mg daily she is tolerating jornay, is taking 60mg daily, still has adhd symptoms increase jornay to 80mg at bedtime x 2 weeks then 100mg at bedtime 06/18/2024 Generalized anxiety disorder (ICD-10 - F41.1) cont fluoxetine 10mg daily she is tolerating jornay, is taking 60mg daily, still has adhd symptoms increase jornay to 80mg at bedtime x 2 weeks then 100mg at bedtime 1. ADHD, Combined Presentation - Patient reports positive response to Journay 100 mg every evening, with no sleep disturbances or crashes. The medication is lasting long enough throughout the day. No side effects reported as long as the patient eats within an hour of waking up. Plan: - Continue Journay 100 mg every evening. - Monitor patient's progress on Journay 100 mg. - Instruct the patient to send a message through the portal when a refill is needed. 2. Generalized Anxiety Disorder - Patient is currently on Fluoxetine 10 mg daily. No problems reported with this medication. The patient acknowledges some situational anxiety due to the time of year and children returning to school but believes it will improve once schedules are established. Plan: - Continue Fluoxetine 10 mg daily. - Monitor patient's anxiety levels and adjust treatment if necessary. - Instruct the patient to request a refill through the portal when needed. 3. Follow-up Plan: - Schedule a follow-up appointment in four months to assess the patient's progress and medication effectiveness. - Encourage the patient to reach out sooner if any concerns or issues arise. 06/18/2024 Major depressive disorder, recurrent, mild (ICD-10 - F33.0) she is tolerating jornay, is taking 60mg daily, still has adhd symptoms increase jornay to 80mg at bedtime x 2 weeks then 100mg at bedtime 1. ADHD, Combined Presentation - Patient reports positive response to Journay 100 mg every evening, with no sleep disturbances or crashes. The medication is lasting long enough throughout the day. No side effects reported as long as the patient eats within an hour of waking up. Plan: - Continue Journay 100 mg every evening. - Monitor patient's progress on Journay 100 mg. - Instruct the patient to send a message through the portal when a refill is needed. 2. Generalized Anxiety Disorder - Patient is currently on Fluoxetine 10 mg daily. No problems reported with this medication. The patient acknowledges some situational anxiety due to the time of year and children returning to school but believes it will improve once schedules are established. Plan: - Continue Fluoxetine 10 mg daily. - Monitor patient's anxiety levels and adjust treatment if necessary. - Instruct the patient to request a refill through the portal when needed. 3. Follow-up Plan: - Schedule a follow-up appointment in four months to assess the patient's progress and medication effectiveness. - Encourage the patient to reach out sooner if any concerns or issues arise. 10/22/2024 Major depressive disorder, recurrent, mild (ICD-10 - F33.0) stable 1. Depression and Anxiety: - Patient reports no significant increase in depression or anxiety symptoms. - Continue current treatment with Fluoxetine 10 mg daily. Plan: - Refill Fluoxetine 10 mg daily for the patient. 2. ADHD: - Patient reports good response to Jornay PM 100 mg every evening, with coverage lasting until about 6-7 pm the following day. Plan: - Continue Jornay PM 100 mg every evening. - Refill Jornay PM 100 mg every evening for the patient. Follow-up: - Schedule a follow-up appointment in 4 months to reassess the patient's symptoms and medication effectiveness. 04/24/2024 Major depressive disorder, recurrent, mild (ICD-10 - F33.0) she is tolerating jornay, is taking 60mg daily, still has adhd symptoms increase jornay to 80mg at bedtime x 2 weeks then 100mg at bedtime Plan Of Treatment Next Appt Details Provider Name:Jordan green, 02/18/2025 01:00:00 PM, [address] [facility] [address], [place], [address], Insurance Providers Payer Name Payer Address Payer Phone Subscriber Number Group Number Insured Name Patient Relationship to Insured Coverage Start Date Coverage End Date [employer] [address] [place] [address] [id number] TRACIE ANGULO Spouse - patient is the spouse of the insured Medical (General) History Medical History History ICD Code Problems: Active or passive immunization Attention deficit hyperactivity disorder , combined type Depressed mood Gastroesophageal reflux disease Generalized anxiety disorder Mild recurrent major depression Mixed anxiety and depressive disorder Pain in pelvis , Surgical History Surgery Date(Month/Year) Removal of gallbladder (75761)
--- OUTSIDE RECORDS SUMMARY | 2025-02-11 09:04 | XMS_ITS | Referral Summary ---
Author Organization [facility] Address [address] [place] [address] Care Team Providers Care Surgical Instrument Technician Name Role Phone Dameon Pitt MD Primary Care Provider [phone] Allergies Active Allergy Reactions Criticality Noted Date [...] TEETH DIRECTED BY DOCTOR. 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
--- OUTSIDE RECORDS SUMMARY | 2025-02-11 09:04 | XMS_ITS | Clinical Summary ---
Author Organization [facility] Address [address] [place] [address] Care Team Providers Care Supervisor Plating And Point Assembly Name Role Phone Dameon Pitt MD Primary Care Provider [phone] Allergies Active Allergy Reactions Criticality Noted Date [...] TEETH DIRECTED BY DOCTOR. 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 Gender Identity Not on file Sexual Orientation [...] ( season) 2024 03/02/2021, 02/09/2021 Influenza Vaccine (Season Ended) 2025 09/07/2021, 08/07/2019, 09/04/2018, Additional history exists Hepatitis B Screening Completed 04/06/2022 HPV Vaccines Aged Out No longer eligi ble based on patient's age to complete this topic Pneumococcal vaccine <65 Aged Out No longer eligible based on patient's age to complete this topic Insurance [facility] Care Teams Supervisor Plating And Point Assembly Relationship Specialty Start Date End Date Dameon Pitt MD PCP - General Family Medicine 07/11/23
--- OUTSIDE RECORDS SUMMARY | 2025-02-11 09:04 | XMS_ITS | Clinical Summary ---
Author Organization [facility] [employer] Address [address] [place] [address] Care Team Providers Care Accountant Supervisor Name Role Phone Brenna Valles MD Primary Care Provider [phone] Source Comments [facility],non-owned Affiliates and Associated Physician Practices is amultiple site organization consisting of ambulatory clinics and hospital sitesin [place], [place], [place] and [place]. This disclosure is being madepursuant to the Care Everywhere program and may not contain all information available regarding this patient. Last updated 18.[facility] [employer] Social History Tobacco Use Types Packs/Day Years [...] VACCINE ( - 2023-2 5 season) 2024 DEPRESSION SCREENING 11/06/2024 INFLUENZA VACCINE (Season Ended) 2025 ZOSTER VACCINE (1 of 2) 02/25/2038 HIB VACCINE Aged Out No longer eligi ble based on patient's age to complete this topic HPV VACCINE Aged Out No longer eligi ble based on patient's age to complete this topic MENINGOCOCCAL (Group B) VACC INE SHARED DECISION-MAKING Aged Out No longer eligibl e based on patient's age to complete this topic MENINGOCOCCAL GROUPS A/C/Y/W VACCINE Aged Out No longer eligible b ased on patient's age to complete this topic PNEUMOCOCCAL VACCINE Aged Out No long er eligible based on patient's age to complete this topic Care Teams Accountant Supervisor Relationship Specialty Start Date End Date Brenna Valles MD [address] [place] [phone] PCP - General Family Medicine 04/20/15
[2025-02-11 18:28] LABS: Add Urine Microscopic? NO; Appearance Urine Clear (Clear); Bilirubin Urine Negative (Negative); Blood Urine Negative (Negative); Color Urine Yellow (Yellow); Glucose Urine UA Negative (Negative); Ketones Urine Negative (Negative); Leukocyte Esterase Ur Negative LEU/UL (Negative); Nitrate Urine Negative (Negative); Protein Urine Negative (Negative); Specific Grav Ur 1.006 (1.001-1.035); Urobilinogen Urine 0.2 mg/dL (<2.0)
== END 2025-02-11 08:47 | disposition home or self-care (01) ==
LOC: ANHBWCLAB 08:48
PROVIDERS: PCP Nurse Practitioner Adult Health; Visit Provider Nurse Practitioner Adult Health
DX: R39.9 Unspecified symptoms and signs involving the genitourinary system (principal)
CPT/HCPCS: 81003; 87086

== ENCOUNTER 2025-02-26 09:23 | Outpatient (CLI) | payer OTHER, SELFPAY ==
--- OUTSIDE RECORDS SUMMARY | 2025-02-26 10:17 | XMS_ITS | Referral Summary ---
Author Organization [facility] Address [address] [place] [address] Care Team Providers Care Strip Cutting Machine Operator Name Role Phone Dameon Pitt MD Primary Care Provider [phone] Allergies Active Allergy Reactions Criticality Noted Date [...] paste BRUSH TEETH DIRECTED BY DOCTOR. 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
--- OUTSIDE RECORDS SUMMARY | 2025-02-26 10:17 | XMS_ITS | Clinical Summary ---
Author Organization [facility] Address [address] [place] [address] Care Team Providers Care Cargo Service Supervisor Name Role Phone Dameon Pitt MD Primary Care Provider [phone] Allergies Active Allergy Reactions Criticality Noted Date [...] TEETH DIRECTED BY DOCTOR. 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
--- OUTSIDE RECORDS SUMMARY | 2025-02-26 10:17 | XMS_ITS | Clinical Summary ---
Author Organization [facility] Address [address] [place] [address] Care Team Providers Care Sub Assembly Team Worker Name Role Phone Brenna Valles MD Primary Care Provider [phone] Source Comments [facility],non-owned Affiliates and Associated Physician Practices is amultiple site organization consisting of ambulatory clinics and hospital sitesin [place], [place], [place] and [place]. This disclosure is being madepursuant to the Care Everywhere program and may not contain all information available regarding this patient. 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 Gender Identity Not on file Sexual Orientation Not on file Plan of Treatment Upcoming Encounters Date Type Department Care Team (Late st Contact Info) Description 03/18/2025 10:00 AM CDT Office Visit [facility] - SENIOR EXECUTIVE ASSISTANT [address] [place] [phone] Abdon Mederos MD [address] [place] [address] Health Maintenance Due Date Last Done Comments PAP SMEAR 1990 HIV SCREENING 02/25/2003 HEPATITIS C SCREENING 02/21/2006 DTAP/TDAP/TD VACCINES (1 - Tdap) 02/25/2007 HEPATITIS B VACCINE (1 of 3 - 19+ 3-dose series) 02/25/2007 COVID-19 VACCINE (3 - 2023- season) 2024 03/02/2021, 02/09/2021 DEPRESSION SCREENING 11/06/2024 INFLUENZA VACCINE (Season Ended) 2025 09/07/2021, 08/07/2019, 09/04/2018, Additional history exists ZOSTER VACCINE (1 of 2) 02/25/2038 HIB VACCINE Aged Out No longer eligi ble based on patient's age to complete this topic HPV VACCINE Aged Out No longer eligi ble based on patient's age to complete this topic MENINGOCOCCAL (Group B) VACCINE SHARED DECISION-MAKING Aged Out No longer eligible based on patient's age to complete this topic MENINGOCOCCAL GROUPS A/C/Y/W VACCINE Aged Out No longer eligible based on patient's age to complete this topic PNEUMOCOCCAL VACCINE Aged Out No long er eligible based on patient's age to complete this topic Insurance [employer] * Guarantor: ROSEANNE ANGULO Account Type Relation to Patient Date of Phone Billing Address Personal/Family 1990 [id number] [facility] * Guarantor: ROSEANNE SEAY Account Type Relation to Patient Date of Phone Billing Address Personal/Family 1990 [address] [id number] Care Teams Sub Assembly Team Worker Relationship Specialty Start Date End Date Brenna Valles MD [address] [place] [phone] PCP - General Family Medicine 04/20/15
[2025-02-26 19:46] LABS: Add Urine Microscopic? NO; Appearance Urine Clear (Clear); Bilirubin Urine Negative (Negative); Blood Urine Negative (Negative); Color Urine Yellow (Yellow); Glucose Urine UA Negative (Negative); Ketones Urine Negative (Negative); Leukocyte Esterase Ur Negative LEU/UL (Negative); Nitrate Urine Negative (Negative); Protein Urine Negative (Negative); Specific Grav Ur 1.014 (1.001-1.035); Urobilinogen Urine 0.2 mg/dL (<2.0); pH Urine 7.5 (5.0-9.0)
== END 2025-02-26 09:24 | disposition home or self-care (01) ==
PROVIDERS: PCP Nurse Practitioner Adult Health; Visit Provider Nurse Practitioner Adult Health
DX: N30.10 Interstitial cystitis (chronic) without hematuria (principal)
CPT/HCPCS: 81003; 87086